=== PATIENT | female | born 1995 | race Hispanic/Latino ===

== ENCOUNTER 2019-03-20 10:27 | Emergency (ER) | payer OTHER ==
--- OUTSIDE RECORDS SUMMARY | 2019-03-20 10:30 | XMS REPORT ---
:1995 [facility] Address [address] [place] [address] Dr. Macdonald [address] [place] [id number] Care Team Providers Name Role Phone Unavailable Unavailable Unavailable Problems This patient has no known problems. Allergies, Adverse Reactions, Alerts This patient has no known allergies or adverse reactions. Medications This patient has no known medications.
[2019-03-20 11:26] LABS: Urine Bacteria 20-50 /HPF (<20); Urine Culture Reflex Order REFLEXED
[2019-03-20 11:32] LABS: Absolute Lymphocytes (CBC) 2.1 K/uL (0.7-4.9); Absolute Monocytes 0.3 K/uL (0.1-1.3); Absolute Neutrophil 5.5 K/uL (1.8-8.0); Basophils % 0.7 % (0-1.3); Eosinophils % 0.9 % (0-4.4); Hematocrit 38.1 % (36.0-45.0); Lymphocytes % 26.3 % (15.3-44.8); RBC Red Blood Cell Count 4.57 M/uL (3.86-4.86)
--- NOTE | 2019-03-20 11:49 | ER ---
Nurse's Notes [facility] Name: Stephane Gonzalez Age: 23 yrs Sex: Female : 1995 Arrival Date: 03/20/2019 Time: 10:30 Bed 16 Private MD: None, None Diagnosis: Threatened Presentation: 03/20 10:37 Presenting complaint: Patient states: LMP- 03/11/19; i have been bleeding for a week hj now, denies N/V; denies fever and chills; reports back pain; "i use like 2 pads a day and yesterday i noticed blood clots too". Transition of care: patient was not received from another setting of care. Onset of symptoms was March 20, 2019. Risk Assessment: Do you want to hurt yourself or someone else? Patient reports no desire to harm self or others. Initial Sepsis Screen: Does the patient meet any 2 criteria? No. Patient's initial sepsis screen is negative. Does the patient have a suspected source of infection? No. Patient's initial sepsis screen is negative. Care prior to arrival: None. 10:37 Method Of Arrival: Ambulatory 10:37 Acuity: ELI 3 Triage Assessment: 10:39 General: Appears in no apparent distress. uncomfortable, Behavior is calm, cooperative, hj appropriate for age. Pain: Complains of pain in back. : Reports vaginal bleeding that is with clots, heavy flow. 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 - Social history:: Smoking status: Patient/guardian denies using tobacco, Patient/guardian denies using alcohol. - Ebola Screening: : Patient negative for fever greater than or equal to 101.5 degrees Fahrenheit, and additional compatible Ebola Virus Disease symptoms Patient denies exposure to infectious person Patient denies travel to an Ebola-affected area in the 21 days before illness onset. Screenin:39 Abuse screen: Denies threats or abuse. Denies injuries from another. Nutritional hj screening: No deficits noted. Tuberculosis screening: No symptoms or risk factors identified. Fall Risk None identified. Assessment: 10:35 General: Appears in no apparent distress. uncomfortable, Behavior is calm, cooperative, hj appropriate for age. Pain: Complains of pain in back. Neuro: Level of Consciousness is awake, alert, obeys commands, Oriented to person, place, time, situation, Appropriate for age. Cardiovascular: Capillary refill < 3 seconds Patient's skin is warm and dry. Respiratory: Airway is patent Respiratory effort is even, unlabored, Respiratory pattern is regular, symmetrical. GI: No signs and/or symptoms were reported involving the gastrointestinal system. : No signs and/or symptoms were reported regarding the genitourinary system. : Reports vaginal bleeding that is bright red, with clots, heavy flow. EENT: No signs and/or symptoms were reported regarding the EENT system. Derm: No signs and/or symptoms reported regarding the dermatologic system. Musculoskeletal: No signs and/or symptoms reported regarding the musculoskeletal system. 11:05 Reassessment: Patient and/or family updated on plan of care and expected duration. Pain ae4 level reassessed. Pain: Complains of pain in lumbar area, left low back and right low back. 11:05 Obstetrical Assessment: General assessment: awake and alert, skin warm and dry, ae4 respirations even and unlabored, Patient reports back pain. 12:33 Reassessment: Patient updated on plan of care and has been made aware she will be ae4 returning to ultrasound. Patient verbalized understanding. Vital Signs: 10:38 BP 106 / 66; Pulse 72; Resp 18; Temp 98.4(O); Pulse Ox 99% on R/A; Weight 102.97 kg; hj Height 5 ft. 4 in. (162.56 cm); Pain 3/10; 11:45 BP 107 / 73; Pulse 73; Resp 16; Pulse Ox 100% on R/A; ae4 10:38 Body Mass Index 38.96 (102.97 kg, 162.56 cm) Vitals: 12:35 Heart Tones Please see ultrasound report.. ae4 ED Course: 10:30 Patient arrived in ED. mr 10:30 None, None is Private Physician. mr 10:32 Chel Waldron FNP-C is PHCP. snw 10:32 James Arias MD is Attending Physician. snw 10:36 Kevan Barrow, JUAN is Primary Nurse. hj 10:38 Triage completed. hj 10:40 Arm band placed on right wrist. hj 10:41 Patient has correct armband on for positive identification. Placed in gown. Bed in low hj position. Call light in reach. Side rails up X 1. Adult w/ patient. 10:53 Urine collected: clean catch specimen, cloudy, jill colored. jb1 11:07 Kevan Barrow, RN is Primary Nurse. hj 11:10 Inserted saline lock: in right antecubital area, using aseptic technique. Blood ae4 collected. 11:15 Patient taken to ultrasound. via wheelchair. ae4 11:30 Primary Nurse role handed off by Kevan Barrow, JUAN ae4 11:30 Vaughn Odom, RN is Primary Nurse. ae4 11:44 Patient moved back from ultrasound. ae4 13:02 Patient moved back from ultrasound. from 2nd ultrasound. ae4 14:23 No provider procedures requiring assistance completed. IV discontinued, intact, ae4 bleeding controlled, No redness/swelling at site. Pressure dressing applied. Administered Medications: No medications were administered Point of Care Testing: Urine : 14:24 hCG Reading: Positive; ae4 Outcome: 11:48 Discharge ordered by . snw 14:23 Discharged to home ambulatory, with family. ae4 14:23 Condition: stable 14:23 Discharge instructions given to patient, Instructed on discharge instructions, follow up and referral plans. medication usage, Demonstrated understanding of instructions, Prescriptions given X 1. 14:24 Patient left the ED. ae4 Signatures: Kayden Botello jb1 Chel Waldron FNP-C DADO OPERATOR-Csnw Ibis Contreras mr Kevan Barrow RN RN Vaughn Odom, JUAN RN ae4
--- NOTE | 2019-03-20 11:49 | EDPHYS ---
Physician Documentation [facility] Name: Stephane Gonzalez Age: 23 yrs Sex: Female : 1995 Arrival Date: 03/20/2019 Time: 10:30 Bed 16 Private MD: None, None ED Physician James Arias HPI: 03/20 11:07 This 23 yrs old Female presents to ER via Ambulatory with complaints of snw Vaginal Bleeding, + Preg <12wks. 11:07 The patient presents with vaginal bleeding that is moderate. Onset: The snw symptoms/episode began/occurred suddenly, 1 week(s) ago, and became persistent. Associated signs and symptoms: Pertinent positives: cramping, vaginal bleeding. Severity of symptoms: At their worst the symptoms were moderate. The patient is sexually active. The patient has been recently seen by a physician:. 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 - Social history:: Smoking status: Patient/guardian denies using tobacco, Patient/guardian denies using alcohol. - Ebola Screening: : Patient negative for fever greater than or equal to 101.5 degrees Fahrenheit, and additional compatible Ebola Virus Disease symptoms Patient denies exposure to infectious person Patient denies travel to an Ebola-affected area in the 21 days before illness onset. ROS: 11:04 Constitutional: Negative for fever, chills, and weight loss, Eyes: Negative for injury, snw pain, redness, and discharge, ENT: Negative for injury, pain, and discharge, Neck: Negative for injury, pain, and swelling, Cardiovascular: Negative for chest pain, palpitations, and edema, Respiratory: Negative for shortness of breath, cough, wheezing, and pleuritic chest pain, Abdomen/GI: Negative for abdominal pain, nausea, vomiting, diarrhea, and constipation, Back: Negative for injury and pain, MS/Extremity: Negative for injury and deformity, Skin: Negative for injury, rash, and discoloration, Neuro: Negative for headache, weakness, numbness, tingling, and seizure. 11:04 : Positive for vaginal bleeding, pt states her lmp was 3/25, found that she was 03/06, has been bleeding x one week, was light pink and has become darker with cramping and with clots over the past 2 days. Seen at [facility], sent to [place]. US showed 6 week IUP. F/u appt scheduled for next Wednesday. Exam: 11:04 Constitutional: This is a well developed, well nourished patient who is awake, alert, snw and in no acute distress. Head/Face: Normocephalic, atraumatic. Eyes: Pupils equal round and reactive to light, extra-ocular motions intact. Lids and lashes normal. Conjunctiva and sclera are non-icteric and not injected. Cornea within normal limits. Periorbital areas with no swelling, redness, or edema. ENT: Nares patent. No nasal discharge, no septal abnormalities noted. Tympanic membranes are normal and external auditory canals are clear. Oropharynx with no redness, swelling, or masses, exudates, or evidence of obstruction, uvula midline. Mucous membranes moist. Neck: Trachea midline, no thyromegaly or masses palpated, and no cervical lymphadenopathy. Supple, full range of motion without nuchal rigidity, or vertebral point tenderness. No Meningismus. Chest/axilla: Normal chest wall appearance and motion. Nontender with no deformity. No lesions are appreciated. Cardiovascular: Regular rate and rhythm with a normal S1 and S2. No gallops, murmurs, or rubs. Normal PMI, no JVD. No pulse deficits. Respiratory: Lungs have equal breath sounds bilaterally, clear to auscultation and percussion. No rales, rhonchi or wheezes noted. No increased work of breathing, no retractions or nasal flaring. Abdomen/GI: Soft, non-tender, with normal bowel sounds. No distension or tympany. No guarding or rebound. No evidence of tenderness throughout. Back: No spinal tenderness. No costovertebral tenderness. Full range of motion. Female : Normal external genitalia. Skin: Warm, dry with normal turgor. Normal color with no rashes, no lesions, and no evidence of cellulitis. MS/ Extremity: Pulses equal, no cyanosis. Neurovascular intact. Full, normal range of motion. Neuro: Awake and alert, GCS 15, oriented to person, place, time, and situation. Cranial nerves II-XII grossly intact. Motor strength 5/5 in all extremities. Sensory grossly intact. Cerebellar exam normal. Normal gait. Psych: Awake, alert, with orientation to person, place and time. Behavior, mood, and affect are within normal limits. Vital Signs: 10:38 BP 106 / 66; Pulse 72; Resp 18; Temp 98.4(O); Pulse Ox 99% on R/A; Weight 102.97 kg; hj Height 5 ft. 4 in. (162.56 cm); Pain 3/10; 11:45 BP 107 / 73; Pulse 73; Resp 16; Pulse Ox 100% on R/A; ae4 10:38 Body Mass Index 38.96 (102.97 kg, 162.56 cm) hj MDM: 10:33 Patient medically screened. [facility] 11:49 Data reviewed: vital signs, nurses notes. Data interpreted: Pulse oximetry: on room air snw is 100 %. Interpretation: normal. Counseling: I had a detailed discussion with the patient and/or guardian regarding: the historical points, exam findings, and any diagnostic results supporting the discharge/admit diagnosis, lab results, radiology results, the need for outpatient follow up, to return to the emergency department if symptoms worsen or persist or if there are any questions or concerns that arise at home. Special discussion: Based on the history and exam findings, there is no indication for further emergent testing or inpatient evaluation. I discussed with the patient/guardian the need to see the OB Gyne specialist for further evaluation of the symptoms. 03/20 10:33 Order name: Urine Microscopic Only; Complete Time: 11:29 snw 03/20 11:04 Order name: Quantitative Hcg; Complete Time: 12:13 snw 03/20 11:04 Order name: Abo/rh Typing; Complete Time: 11:45 snw 03/20 11:04 Order name: Basic Metabolic Panel; Complete Time: 12:13 snw 03/20 11:04 Order name: CBC with Diff; Complete Time: 11:36 snw 03/20 11:35 Order name: Urine Dipstick--Ancillary (enter results) bd 03/20 10:33 Order name: Urine Test (obtain specimen); Complete Time: 10:54 snw 03/20 10:33 Order name: Urine Dipstick-Ancillary (obtain specimen); Complete Time: 10:54 snw 03/20 11:04 Order name: IV Saline Lock; Complete Time: 11:23 snw 03/20 11:04 Order name: Labs collected and sent; Complete Time: 11:23 snw 03/20 11:04 Order name: US Transvaginal Ob snw 03/20 11:35 Order name: Urine --Ancillary (enter results) bd 03/20 11:59 Order name: Urine --Ancillary; Complete Time: 11:59 EDMS 03/20 11:59 Order name: Urine Dipstick-Ancillary; Complete Time: 11:59 EDMD 03/20 11:04 Order name: NPO; Complete Time: 11:23 snw Administered Medications: No medications were administered Point of Care Testing: Urine : 14:24 hCG Reading: Positive; ae4 Disposition: 03/21 07:33 Co-signature as Attending Physician, James Arias MD I agree with the assessment and kenia plan of care. Disposition: 03/20/19 11:48 Discharged to Home. Impression: Threatened . - Condition is Stable. - Discharge Instructions: Threatened Miscarriage, Vaginal Bleeding During , First Trimester, Subchorionic Hematoma, First Trimester of , Pelvic Rest. - Prescriptions for Vitamin 27- 0.8 mg Oral Tablet - take 1 tablet by ORAL route once daily; 60 tablet. - Medication Reconciliation Form, Thank You Letter, Antibiotic Education, Prescription Opioid Use form. - Follow up: Private Physician; When: as scheduled; Reason: Recheck today's complaints, Continuance of care, Re-evaluation by your physician. Signatures: Dispatcher [employer] James Ascencio MD MD cha Therrien, Shelly, SIDER-C SIDER-Csnw Kevan Barrow, JUAN RN Vaughn Hogan RN RN ae4 Corrections: (The following items were deleted from the chart) 03/20 11:50 11:04 : Positive for vaginal bleeding, pt states her lmp was 4/25, found that she was snw 03/06, has been bleeding x one week, was light pink and has become darker with cramping and with clots over the past 2 days. Seen at [facility], sent to [place]. US showed 6 week IUP. F/u appt scheduled for next Wednesday, shaylee 14:24 11:48 03/20/2019 11:48 Discharged to Home. Impression: Threatened . Condition ae4 is Stable. Forms are Medication Reconciliation Form, Thank You Letter, Antibiotic Education, Prescription Opioid Use. Follow up: Private Physician; When: as scheduled; Reason: Recheck today's complaints, Continuance of care, Re-evaluation by your physician. snw
[2019-03-20 11:56] LABS: Urine Blood 3+ (NEG); Urine Glucose NEGATIVE (NEG); Urine Protein 1+ (NEG); Urine Specific Gravity >1.030 (1.005-1.030); Urine pH 5.5 (5.0-7.0)
[2019-03-20 12:12] LABS: BUN Blood Urea Nitrogen 14 mg/dL (7-18); Bicarbonate 25 mmol/L (21-32); Glucose Level 85 mg/dL (74-106); HCG, Quantitative 1997 mIU/mL (1-3); Sodium Level 138 mmol/L (136-145)
[2019-03-20 14:28] VITALS: TEMP 98.4
[2019-03-20 14:30] VITALS: BP 107/73; O2SAT 100
--- NOTE | 2019-03-20 15:06 | RAD REPORT ---
EXAM DESCRIPTION: US - Transvaginal OB - 03/20/2019 11:36 am CLINICAL HISTORY: with abdominal pain and vaginal bleeding COMPARISON: None. FINDINGS: The uterus 9 x 5 x 6 centimeters. A gestational sac is present within the endometrium. Wi thin this is a yolk sac and pole with a crown-rump length 5.6 millimeters. Cardiac activity not visualized. An additional 2 millimeter echogenic structure present within the gestational sac of unc ertain etiology. Right ovary is normal in size and echotexture. Left ovary was not seen. An adnexal mass is not noted. No significant free fluid is seen. IMPRESSION: Intrauterine with an estimated gestational age 6 weeks 2 days SUMAN 11/11/2019. This may represent a nonviable . Another consideration is that the cardiac activity was not detected due to a combination of the early gestational age and technical factors. It is recommended t hat the patient have a followup endovaginal sonogram in 1 week for re-evaluation Exam discussed with Ameena in the Emergency Room
== END 2019-03-20 14:24 | disposition home or self-care (01) ==
LOC: ER 10:27
DX: O20.0 Threatened abortion (principal); Z3A.01 Less than 8 weeks gestation of pregnancy
CPT/HCPCS: 36415; 76817; 80048; 81003; 81015; 81025; 84702; 85025; 86900; 86901; 87086; 87088; 99284

== ENCOUNTER 2019-03-21 07:43 | Emergency (ER) | payer OTHER ==
--- OUTSIDE RECORDS SUMMARY | 2019-03-21 07:45 | XMS REPORT ---
:1995 [facility] Address [address] [place] [address] Dr. Macdonald [address] [place] [id number] Care Team Providers Name Role Phone Unavailable Unavailable Unavailable Problems This patient has no known problems. Allergies, Adverse Reactions, Alerts This patient has no known allergies or adverse reactions. Medications This patient has no known medications.
[2019-03-21] MEDS ORDERED: NA CHLORIDE 0.9% 1,000 ML ONE (08:16)
--- NOTE | 2019-03-21 09:00 | RAD REPORT ---
EXAM DESCRIPTION: US - Transvaginal OB - 03/21/2019 8:30 am CLINICAL HISTORY: with abdominal pain and vaginal bleeding COMPARISON: March 20, 2019 FINDINGS: The uterus 9 x 4 x 4 centimeters. The endometrial stripe is heterogeneous containing cyst ic and solid elements. Increased vascularity is present. A normal appearing a gestational sac is not noted. A normal appearing pole is not seen. Ovaries are normal in size and echotexture.. An adnexal mass is not noted. Small amount of fluid IMPRESSION: Incomplete
[2019-03-21 09:01] LABS: Absolute Lymphocytes (CBC) 2.1 K/uL (0.7-4.9); Absolute Monocytes 0.5 K/uL (0.1-1.3); Absolute Neutrophil 6.9 K/uL (1.8-8.0); Basophils % 0.6 % (0-1.3); Hematocrit 37.4 % (36.0-45.0); Lymphocytes % 21.6 % (15.3-44.8); MPV 7.9 fL (7.6-11.3); Monocytes % 5.1 % (3.3-12.3); RBC Red Blood Cell Count 4.47 M/uL (3.86-4.86)
[2019-03-21 09:32] LABS: BUN Blood Urea Nitrogen 14 mg/dL (7-18); Bicarbonate 23 mmol/L (21-32); Glucose Level 93 mg/dL (74-106); HCG, Quantitative 1308 mIU/mL (1-3); Potassium 3.9 mmol/L (3.5-5.1); Sodium Level 140 mmol/L (136-145)
--- NOTE | 2019-03-21 09:41 | EDPHYS ---
Physician Documentation [facility] Name: Stephane Gonzalez Age: 23 yrs Sex: Female : 1995 Arrival Date: 03/21/2019 Time: 07:45 Bed 13 Private MD: None, None ED Physician James Arias HPI: 03/21 08:27 This 23 yrs old Female presents to ER via Wheelchair with complaints of kenia Vaginal Bleeding, . 08:27 The patient presents with vaginal bleeding that is light. Onset: The symptoms/episode kenia began/occurred 1 week(s) ago. Modifying factors: The symptoms are alleviated by nothing, the symptoms are aggravated by nothing. Associated signs and symptoms: The patient has no apparent associated signs or symptoms. The patient is sexually active. The patient has not experienced similar symptoms in the past. 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 - Social history:: Smoking status: . - Ebola Screening: : Patient denies travel to an Ebola-affected area in the 21 days before illness onset. - Family history:: not pertinent. ROS: 08:27 Constitutional: Negative for fever, chills, and weight loss, Eyes: Negative for injury, kenia pain, redness, and discharge, ENT: Negative for injury, pain, and discharge, Neck: Negative for injury, pain, and swelling, Cardiovascular: Negative for chest pain, palpitations, and edema, Respiratory: Negative for shortness of breath, cough, wheezing, and pleuritic chest pain, Abdomen/GI: Negative for abdominal pain, nausea, vomiting, diarrhea, and constipation, Back: Negative for injury and pain, MS/Extremity: Negative for injury and deformity, Skin: Negative for injury, rash, and discoloration, Neuro: Negative for headache, weakness, numbness, tingling, and seizure, Psych: Negative for depression, anxiety, suicide ideation, homicidal ideation, and hallucinations, Allergy/Immunology: Negative for hives, rash, and allergies, Endocrine: Negative for neck swelling, polydipsia, polyuria, polyphagia, and marked weight changes, Hematologic/Lymphatic: Negative for swollen nodes, abnormal bleeding, and unusual bruising. 08:27 : Positive for pelvic pain, vaginal bleeding. Exam: 08:27 Constitutional: This is a well developed, well nourished patient who is awake, alert, kenia and in no acute distress. Head/Face: Normocephalic, atraumatic. Eyes: Pupils equal round and reactive to light, extra-ocular motions intact. Lids and lashes normal. Conjunctiva and sclera are non-icteric and not injected. Cornea within normal limits. Periorbital areas with no swelling, redness, or edema. ENT: Nares patent. No nasal discharge, no septal abnormalities noted. Tympanic membranes are normal and external auditory canals are clear. Oropharynx with no redness, swelling, or masses, exudates, or evidence of obstruction, uvula midline. Mucous membranes moist. Neck: Trachea midline, no thyromegaly or masses palpated, and no cervical lymphadenopathy. Supple, full range of motion without nuchal rigidity, or vertebral point tenderness. No Meningismus. Chest/axilla: Normal chest wall appearance and motion. Nontender with no deformity. No lesions are appreciated. Cardiovascular: Regular rate and rhythm with a normal S1 and S2. No gallops, murmurs, or rubs. Normal PMI, no JVD. No pulse deficits. Respiratory: Lungs have equal breath sounds bilaterally, clear to auscultation and percussion. No rales, rhonchi or wheezes noted. No increased work of breathing, no retractions or nasal flaring. Abdomen/GI: Soft, non-tender, with normal bowel sounds. No distension or tympany. No guarding or rebound. No evidence of tenderness throughout. Back: No spinal tenderness. No costovertebral tenderness. Full range of motion. Skin: Warm, dry with normal turgor. Normal color with no rashes, no lesions, and no evidence of cellulitis. MS/ Extremity: Pulses equal, no cyanosis. Neurovascular intact. Full, normal range of motion. Neuro: Awake and alert, GCS 15, oriented to person, place, time, and situation. Cranial nerves II-XII grossly intact. Motor strength 5/5 in all extremities. Sensory grossly intact. Cerebellar exam normal. Normal gait. Psych: Awake, alert, with orientation to person, place and time. Behavior, mood, and affect are within normal limits. Vital Signs: 07:51 BP 117 / 91; Pulse 82; Resp 18; Temp 97.9(O); Pulse Ox 100% on R/A; Pain 8/10; tw2 08:54 BP 101 / 67; Pulse 78; Resp 18; Pulse Ox 98% on R/A; tw2 MDM: 07:54 Patient medically screened. [facility] 03/21 07:56 Order name: Quantitative Hcg; Complete Time: 09:40 [facility] 03/21 07:56 Order name: Abo/rh Typing [facility] 03/21 07:56 Order name: Basic Metabolic Panel; Complete Time: 09:40 [facility] 03/21 07:56 Order name: CBC with Diff; Complete Time: 09:03 [facility] 03/21 07:56 Order name: US Transvaginal Ob; Complete Time: 09:03 [facility] 03/21 07:56 Order name: Urine Culture [facility] 03/21 07:56 Order name: IV Saline Lock; Complete Time: 08:04 [facility] 03/21 07:56 Order name: Labs collected and sent; Complete Time: 08:04 [facility] 03/21 07:56 Order name: NPO; Complete Time: 07:58 [facility] 03/21 08:23 Order name: Labs - recollect needed; Complete Time: 08:44 iw Administered Medications: 08:04 Drug: NS 0.9% 1000 ml Route: IV; Rate: 1 bolus; Site: right antecubital; tw2 10:16 Follow up: Response: No adverse reaction; IV Status: Order to discontinue infusion; IV tw2 Intake: 700ml Disposition: 03/21/19 09:41 Discharged to Home. Impression: Threatened , Missed . - Condition is Stable. - Discharge Instructions: Miscarriage, Threatened Miscarriage, Vaginal Bleeding During , First Trimester, Threatened Miscarriage, [id number], Pelvic Rest. - Prescriptions for Vitamin 27- 0.8 mg Oral Tablet - take 1 tablet by ORAL route once daily; 30 tablet. - Medication Reconciliation Form, Thank You Letter, Antibiotic Education, Prescription Opioid Use form. - Follow up: Private Physician; When: 2 - 3 days; Reason: Recheck today's complaints, Continuance of care, Re-evaluation by your physician. Follow up: Mini Rekhi; When: 2 - 3 days; Reason: Recheck today's complaints, Re-evaluation by your physician. - Problem is new. - Symptoms have improved. Signatures: Dispatcher [employer] James Ascencio MD MD cha Williams, Irene, RN RN iw Lisa Rick RN RN tw2 Corrections: (The following items were deleted from the chart) 10:16 09:41 03/21/2019 09:41 Discharged to Home. Impression: Threatened ; Missed tw2 . Condition is Stable. Discharge Instructions: Threatened Miscarriage, Vaginal Bleeding During , First Trimester, Threatened Miscarriage, [id number], Pelvic Rest, Miscarriage. Prescriptions for Vitamin 27-0.8 mg Oral Tablet - take 1 tablet by ORAL route once daily; 30 tablet. and Forms are Medication Reconciliation Form, Thank You Letter, Antibiotic Education, Prescription Opioid Use. Follow up: Private Physician; When: 2 - 3 days; Reason: Recheck today's complaints, Continuance of care, Re-evaluation by your physician. Follow up: Mini Rekhi; When: 2 - 3 days; Reason: Recheck today's complaints, Re-evaluation by your physician. Problem is new. Symptoms have improved. kenia
--- NOTE | 2019-03-21 09:41 | ER ---
Nurse's Notes [facility] Name: Stephane Gonzalez Age: 23 yrs Sex: Female : 1995 Arrival Date: 03/21/2019 Time: 07:45 Bed 13 Private MD: None, None Diagnosis: Threatened ;Missed Presentation: 03/21 07:49 Presenting complaint: Patient states: i passed the sac this morning and i am bleeding, tw2 i have a picture of it. Transition of care: patient was not received from another setting of care. Onset of symptoms was March 21, 2019. Risk Assessment: Do you want to hurt yourself or someone else? Patient reports no desire to harm self or others. Initial Sepsis Screen: Does the patient meet any 2 criteria? No. Patient's initial sepsis screen is negative. Does the patient have a suspected source of infection? No. Patient's initial sepsis screen is negative. Care prior to arrival: None. 07:49 Method Of Arrival: Wheelchair tw2 07:49 Acuity: ELI 3 tw2 Triage Assessment: 07:50 General: Appears in no apparent distress. obese, Behavior is cooperative, appropriate tw2 for age, crying. Pain: Complains of pain in back. : Reports vaginal bleeding that is bright red, moderate flow. 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 - Social history:: Smoking status: . - Ebola Screening: : Patient denies travel to an Ebola-affected area in the 21 days before illness onset. - Family history:: not pertinent. Screenin:54 Abuse screen: Denies threats or abuse. Nutritional screening: No deficits noted. tw2 Tuberculosis screening: No symptoms or risk factors identified. Fall Risk None identified. Assessment: 07:54 General: Appears in no apparent distress. obese, Behavior is cooperative, appropriate tw2 for age, crying. Pain: Complains of pain in back. Neuro: Level of Consciousness is awake, alert, obeys commands, Oriented to person, place, time, situation. Cardiovascular: Heart tones S1 S2 Patient's skin is warm and dry. Respiratory: Airway is patent Respiratory effort is even, unlabored, Respiratory pattern is regular, symmetrical, Breath sounds are clear bilaterally. GI: No signs and/or symptoms were reported involving the gastrointestinal system. Abdomen is round non-distended, obese, Bowel sounds present X 4 quads. : Reports vaginal bleeding that is bright red, moderate flow. EENT: No signs and/or symptoms were reported regarding the EENT system. Derm: No signs and/or symptoms reported regarding the dermatologic system. Musculoskeletal: Reports pain in back. 08:25 Reassessment: levi bloody urine sent to lab for dipstick and urine culture. tw2 08:54 Reassessment: Patient appears in no apparent distress at this time. No changes from tw2 previously documented assessment. Patient and/or family updated on plan of care and expected duration. Pain level reassessed. Patient is alert, oriented x 3, equal unlabored respirations, skin warm/dry/pink. 09:23 Reassessment: provider at bedside at this time. tw2 10:15 Reassessment: Patient appears in no apparent distress at this time. No changes from tw2 previously documented assessment. Patient and/or family updated on plan of care and expected duration. Pain level reassessed. Patient is alert, oriented x 3, equal unlabored respirations, skin warm/dry/pink. Vital Signs: 07:51 BP 117 / 91; Pulse 82; Resp 18; Temp 97.9(O); Pulse Ox 100% on R/A; Pain 8/10; tw2 08:54 BP 101 / 67; Pulse 78; Resp 18; Pulse Ox 98% on R/A; tw2 ED Course: 07:45 Patient arrived in ED. mr 07:45 None, None is Private Physician. mr 07:49 Lisa Rick RN is Primary Nurse. tw2 07:50 Triage completed. tw2 07:51 Arm band placed on. tw2 07:54 James Arias MD is Attending Physician. kenia 07:54 Bed in low position. Call light in reach. Adult w/ patient. Pulse ox on. NIBP on. tw2 08:14 Initial lab(s) drawn, by me, sent to lab. Inserted saline lock: 22 gauge in right kj1 antecubital area, using aseptic technique. 08:30 US Transvaginal Ob In Process Unspecified. EDMS 09:40 Ivette You MD is Referral Physician. [facility] 10:16 No provider procedures requiring assistance completed. IV discontinued, intact, tw2 bleeding controlled, No redness/swelling at site. Pressure dressing applied. Administered Medications: 08:04 Drug: NS 0.9% 1000 ml Route: IV; Rate: 1 bolus; Site: right antecubital; tw2 10:16 Follow up: Response: No adverse reaction; IV Status: Order to discontinue infusion; IV tw2 Intake: 700ml Intake: 10:16 IV: 700ml; Total: 700ml. tw2 Outcome: 09:41 Discharge ordered by . [facility] 10:16 Discharged to home ambulatory, with family. tw2 10:16 Condition: stable 10:16 Discharge instructions given to patient, family, Instructed on discharge instructions, follow up and referral plans. medication usage, Demonstrated understanding of instructions, follow-up care, medications, Prescriptions given X 1. 10:16 Patient left the ED. tw2 Signatures: Dispatcher [employer] EDSC James Arias MD MD cha Rivera, Lisa Leung RN RN tw2 Anai Aldana kj1 Corrections: (The following items were deleted from the chart) 07:53 07:52 LMP 01/09/2019 tw2 tw2
[2019-03-21 10:22] VITALS: TEMP 97.9
[2019-03-21 10:24] VITALS: BP 101/67; O2SAT 98
== END 2019-03-21 10:16 | disposition home or self-care (01) ==
LOC: ER 07:43
DX: O02.1 Missed abortion (principal)
CPT/HCPCS: 36415; 76817; 80048; 84702; 85025; 86900; 86901; 87086; 87088; 96360; 96361; 99284; J7030

== ENCOUNTER 2019-12-25 10:42 | Emergency (ER) | payer OTHER ==
--- OUTSIDE RECORDS SUMMARY | 2019-12-25 10:47 | XMS REPORT ---
:1995 [facility] Address [address] [place] [address] Dr. Macdonald [address] [place] [id number] Care Team Providers Name Role Phone Unavailable Unavailable Unavailable Problems This patient has no known problems. Allergies, Adverse Reactions, Alerts This patient has no known allergies or adverse reactions. Medications This patient has no known medications.
[2019-12-25] MEDS ORDERED: NA CHLORIDE 0.9% 1,000 ML ONE (11:12)
[2019-12-25 11:34] LABS: Absolute Lymphocytes (CBC) 1.6 K/uL (0.7-4.9); Basophils % 0.2 % (0-1.3); Hematocrit 35.3 % (36.0-45.0); Lymphocytes % 13.4 % (15.3-44.8); RBC Red Blood Cell Count 4.14 M/uL (3.86-4.86)
[2019-12-25 11:36] LABS: Urine Blood NEGATIVE (NEG); Urine Glucose NEGATIVE (NEG); Urine Protein 1+ (NEG); Urine pH 5.5 (5.0-7.0)
--- NOTE | 2019-12-25 11:37 | RAD REPORT ---
EXAM DESCRIPTION: US - Abdomen Exam Limited - 12/25/2019 11:19 am CLINICAL HISTORY: Abdominal pain. COMPARISON: None. FINDINGS: Borderline gallbladder distention The gallbladder wall is not thickened. A gallstone is not seen. The biliary tree is normal caliber. IMPRESSION: Borderline gallbladder distention. A gallstone is not seen
[2019-12-25 11:47] LABS: ALT/SGPT 22 U/L (12-78); AST/SGOT 20 U/L (15-37); Albumin 2.8 g/dL (3.4-5.0); Alkaline Phosphatase 123 U/L (45-117); BUN Blood Urea Nitrogen 5 mg/dL (7-18); Bicarbonate 22 mmol/L (21-32); Bilirubin Direct < 0.1 mg/dL (0-0.2); Bilirubin Total 0.3 mg/dL (0.2-1.0); Glucose Level 79 mg/dL (74-106); Lipase 107 U/L (73-393); Potassium 3.7 mmol/L (3.5-5.1); Protein, Total 7.2 g/dL (6.4-8.2); Sodium Level 139 mmol/L (136-145)
--- NOTE | 2019-12-25 12:25 | ER ---
Nurse's Notes [facility] Name: Stephane Gonzalez Age: 24 yrs Sex: Female : 1995 Arrival Date: 12/25/2019 Time: 10:53 Bed 6 Private MD: Diagnosis: Functional dyspepsia; related conditions, unspecified, third trimester;Urinary tract infection, site not specified Presentation: 12/24 10:54 Chief complaint: EMS states: epigastric pain that started today, reports N/V/D, denies em fever, also reports being 30 weeks , denies vaginal bleeding or cramping. Coronavirus screen: The patient has NOT traveled to a country currently being monitored by the [facility] within the last 14 days. The patient has NOT had contact with any known and/or suspected case of coronavirus. Ebola Screen: Patient negative for fever greater than or equal to 101.5 degrees Fahrenheit, and additional compatible Ebola Virus Disease symptoms Patient denies exposure to infectious person. Patient denies travel to an Ebola-affected area in the 21 days before illness onset. No symptoms or risks identified at this time. Initial Sepsis Screen: Does the patient meet any 2 criteria? No. Patient's initial sepsis screen is negative. Does the patient have a suspected source of infection? No. Patient's initial sepsis screen is negative. Risk Assessment: Do you want to hurt yourself or someone else? Patient reports no desire to harm self or others. 10:54 Method Of Arrival: EMS: [facility] em 10:54 Acuity: ELI 3 em 11:14 Onset of symptoms was December 25, 2019. 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 - Social history:: Smoking status: Patient denies any tobacco usage or history of. Screenin:59 Abuse screen: Denies threats or abuse. Nutritional screening: No deficits noted. em Tuberculosis screening: No symptoms or risk factors identified. Fall Risk None identified. Assessment: 10:58 General: Appears in no apparent distress. comfortable, Behavior is calm, cooperative, em Denies fever. Pain: Complains of pain in epigastric area Pain radiates to back Pain currently is 7 out of 10 on a pain scale. Quality of pain is described as shooting, Pain began 3 hours ago. Neuro: Level of Consciousness is awake, alert, obeys commands, Oriented to person, place, time, situation, Appropriate for age. Cardiovascular: Capillary refill < 3 seconds Patient's skin is warm and dry. Respiratory: Airway is patent Respiratory effort is even, unlabored, Respiratory pattern is regular, symmetrical. GI: Abdomen is round non-distended, Bowel sounds present X 4 quads. Abd is soft and non tender X 4 quads. Reports diarrhea, nausea, vomiting. : Denies burning with urination, cramping discharge, vaginal bleeding. Derm: Skin is intact, is healthy with good turgor, Skin is pink, warm \T\ dry. Musculoskeletal: Capillary refill < 3 seconds, Range of motion: intact in all extremities. 11:14 Reassessment: Ultrasound at the bedside. sv 12:15 Reassessment: Patient appears in no apparent distress at this time. Patient and/or em family updated on plan of care and expected duration. Pain level reassessed. Patient is alert, oriented x 3, equal unlabored respirations, skin warm/dry/pink. Vital Signs: 10:54 BP 107 / 69; Pulse 80; Resp 18; Temp 97.4; Pulse Ox 100% on R/A; Weight 99.79 kg; em Height 5 ft. 4 in. (162.56 cm); Pain 7/10; 12:15 BP 106 / 72; Pulse 72; Resp 18; Pulse Ox 99% on R/A; Pain 7/10; em 10:54 Body Mass Index 37.76 (99.79 kg, 162.56 cm) em Vitals: 11:24 Heart Tones 140. sv ED Course: 10:53 Patient arrived in ED. em 10:54 James Arias MD is Attending Physician. [facility] 10:56 Triage completed. em 10:56 Arm band placed on. em 10:59 Patient has correct armband on for positive identification. Placed in gown. Bed in low em position. Call light in reach. Side rails up X2. Adult w/ patient. Pulse ox on. NIBP on. 11:05 Sohan Rooney, RN is Primary Nurse. em 11:05 Inserted saline lock: 20 gauge in right antecubital area, using aseptic technique. sv Blood collected. Flushed right antecubital with 5 ml normal saline. 11:16 Awaiting lab results. sv 11:21 US Abdomen Limited In Process Unspecified. EDMS 13:07 No provider procedures requiring assistance completed. IV discontinued, intact, em bleeding controlled, No redness/swelling at site. Pressure dressing applied. Administered Medications: 11:25 Drug: NS 0.9% 1000 ml Route: IV; Rate: 1 bolus; Site: right antecubital; sv 13:06 Follow up: IV Status: Order to discontinue infusion; IV Intake: 200ml em 13:05 Not Given (Physician Discretion): Rocephin 1 grams IV at per protocol once; Given slow em IV push per pharmacy instructions 13:06 Drug: Rocephin (cefTRIAXone) 1 grams Route: IM; Site: right gluteus; em 13:16 Follow up: Response: No adverse reaction em Intake: 13:06 IV: 200ml; Total: 200ml. em Outcome: 12:23 Discharge ordered by . kenia 13:12 Discharged to home ambulatory. em 13:12 Condition: good 13:12 Discharge instructions given to patient, Instructed on discharge instructions, follow up and referral plans. medication usage, Demonstrated understanding of instructions, follow-up care, medications, Prescriptions given X 2. 13:17 Patient left the ED. em Signatures: Dispatcher [employer] Basia Johnston RN RN sv Anderson, Corey, MD MD cha Munoz, Edgar, RN RN em
--- NOTE | 2019-12-25 12:25 | EDPHYS ---
Physician Documentation [facility] Name: Stephane Gonzalez Age: 24 yrs Sex: Female : 1995 Arrival Date: 12/25/2019 Time: 10:53 Bed 6 Private MD: ED Physician James Arias HPI: 12/24 11:01 This 24 yrs old Female presents to ER via EMS with complaints of Abdominal kenia Pain. 11:01 The patient presents with abdominal pain in the epigastric area. Onset: The kenia symptoms/episode began/occurred this morning. The symptoms do not radiate. Associated signs and symptoms: none. The symptoms are described as crampy. Modifying factors: The symptoms are alleviated by food. Severity of pain: At its worst the pain was mild in the emergency department the pain is unchanged. The patient has not experienced similar symptoms in the past. 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 - Social history:: Smoking status: Patient denies any tobacco usage or history of. ROS: 11:02 Constitutional: Negative for fever, chills, and weight loss, Eyes: Negative for injury, kenia pain, redness, and discharge, ENT: Negative for injury, pain, and discharge, Neck: Negative for injury, pain, and swelling, Cardiovascular: Negative for chest pain, palpitations, and edema, Respiratory: Negative for shortness of breath, cough, wheezing, and pleuritic chest pain, Back: Negative for injury and pain, : Negative for injury, bleeding, discharge, and swelling, MS/Extremity: Negative for injury and deformity, Skin: Negative for injury, rash, and discoloration, Neuro: Negative for headache, weakness, numbness, tingling, and seizure, Psych: Negative for depression, anxiety, suicide ideation, homicidal ideation, and hallucinations, Allergy/Immunology: Negative for hives, rash, and allergies, Endocrine: Negative for neck swelling, polydipsia, polyuria, polyphagia, and marked weight changes, Hematologic/Lymphatic: Negative for swollen nodes, abnormal bleeding, and unusual bruising. 11:02 Abdomen/GI: Positive for abdominal pain, of the epigastric area, right upper quadrant and left upper quadrant. Exam: 11:02 Constitutional: This is a well developed, well nourished patient who is awake, alert, kenia and in no acute distress. Head/Face: Normocephalic, atraumatic. Eyes: Pupils equal round and reactive to light, extra-ocular motions intact. Lids and lashes normal. Conjunctiva and sclera are non-icteric and not injected. Cornea within normal limits. Periorbital areas with no swelling, redness, or edema. ENT: Nares patent. No nasal discharge, no septal abnormalities noted. Tympanic membranes are normal and external auditory canals are clear. Oropharynx with no redness, swelling, or masses, exudates, or evidence of obstruction, uvula midline. Mucous membranes moist. Neck: Trachea midline, no thyromegaly or masses palpated, and no cervical lymphadenopathy. Supple, full range of motion without nuchal rigidity, or vertebral point tenderness. No Meningismus. Chest/axilla: Normal chest wall appearance and motion. Nontender with no deformity. No lesions are appreciated. Cardiovascular: Regular rate and rhythm with a normal S1 and S2. No gallops, murmurs, or rubs. Normal PMI, no JVD. No pulse deficits. Respiratory: Lungs have equal breath sounds bilaterally, clear to auscultation and percussion. No rales, rhonchi or wheezes noted. No increased work of breathing, no retractions or nasal flaring. Back: No spinal tenderness. No costovertebral tenderness. Full range of motion. Skin: Warm, dry with normal turgor. Normal color with no rashes, no lesions, and no evidence of cellulitis. MS/ Extremity: Pulses equal, no cyanosis. Neurovascular intact. Full, normal range of motion. Neuro: Awake and alert, GCS 15, oriented to person, place, time, and situation. Cranial nerves II-XII grossly intact. Motor strength 5/5 in all extremities. Sensory grossly intact. Cerebellar exam normal. Normal gait. Psych: Awake, alert, with orientation to person, place and time. Behavior, mood, and affect are within normal limits. 11:02 Abdomen/GI: Inspection: gravid appearance, Bowel sounds: normal, Palpation: mild abdominal tenderness, in the epigastric area and right upper quadrant, Liver: no appreciated palpable abnormalities, Hernia: not appreciated. Vital Signs: 10:54 BP 107 / 69; Pulse 80; Resp 18; Temp 97.4; Pulse Ox 100% on R/A; Weight 99.79 kg; em Height 5 ft. 4 in. (162.56 cm); Pain 7/10; 12:15 BP 106 / 72; Pulse 72; Resp 18; Pulse Ox 99% on R/A; Pain 7/10; em 10:54 Body Mass Index 37.76 (99.79 kg, 162.56 cm) em MDM: 11:03 Data reviewed: vital signs, nurses notes, lab test result(s), radiologic studies, [facility] ultrasound. 11:03 Patient medically screened. [facility] 12/24 11:00 Order name: Basic Metabolic Panel; Complete Time: 12:16 [facility] 12/24 11:00 Order name: CBC with Diff; Complete Time: 12:16 [facility] 12/24 11:00 Order name: Creatinine for Radiology; Complete Time: 12:16 [facility] 12/24 11:00 Order name: Hepatic Function; Complete Time: 12:16 [facility] 12/24 11:00 Order name: Lipase; Complete Time: 12:17 [facility] 12/24 11:00 Order name: Urine Culture [facility] 12/24 11:00 Order name: IV Saline Lock; Complete Time: 11:11 [facility] 12/24 11:00 Order name: Labs collected and sent; Complete Time: 11:11 [facility] 12/24 11:00 Order name: US Abdomen Limited; Complete Time: 12:17 [facility] 12/24 11:19 Order name: Urine Dipstick--Ancillary (enter results); Complete Time: 12:16 12/24 11:19 Order name: Urine --Ancillary (enter results); Complete Time: 12:16 12/24 11:00 Order name: Urine Dipstick-Ancillary (obtain specimen); Complete Time: 11:24 [facility] 12/24 11:00 Order name: Urine Test (obtain specimen); Complete Time: 11:24 [facility] 12/24 11:00 Order name: FHT's; Complete Time: 11:24 [facility] Administered Medications: 11:25 Drug: NS 0.9% 1000 ml Route: IV; Rate: 1 bolus; Site: right antecubital; sv 13:06 Follow up: IV Status: Order to discontinue infusion; IV Intake: 200ml em 13:05 Not Given (Physician Discretion): Rocephin 1 grams IV at per protocol once; Given slow em IV push per pharmacy instructions 13:06 Drug: Rocephin (cefTRIAXone) 1 grams Route: IM; Site: right gluteus; em 13:16 Follow up: Response: No adverse reaction em Disposition: 12/25/19 12:23 Discharged to Home. Impression: Functional dyspepsia, related conditions, unspecified, third trimester, Urinary tract infection, site not specified. - Condition is Stable. - Discharge Instructions: Abdominal Pain During , Urinary Tract Infection, Adult, Urinary Tract Infection, Adult, [id number], Abdominal Pain During , Qezo-hb-[id number], and Urinary Tract Infection, Pelvic Rest. - Prescriptions for Augmentin 875- 125 mg Oral Tablet - take 1 tablet by ORAL route every 12 hours for 7 days; 14 tablet. Vitamin 27- 0.8 mg Oral Tablet - take 1 tablet by ORAL route once daily; 30 tablet. - Medication Reconciliation Form, Thank You Letter, Antibiotic Education, Prescription Opioid Use form. - Follow up: Private Physician; When: 2 - 3 days; Reason: Recheck today's complaints, Continuance of care, Re-evaluation by your physician. - Problem is new. - Symptoms have improved. Signatures: Dispatcher [employer] Basia Johnston, RN James Hayes MD MD cha Munoz, Edgar, RN RN em Corrections: (The following items were deleted from the chart) 13:17 12:23 12/25/2019 12:23 Discharged to Home. Impression: Functional dyspepsia; em related conditions, unspecified, third trimester; Urinary tract infection, site not specified. Condition is Stable. Forms are Medication Reconciliation Form, Thank You Letter, Antibiotic Education, Prescription Opioid Use. Follow up: Private Physician; When: 2 - 3 days; Reason: Recheck today's complaints, Continuance of care, Re-evaluation by your physician. Problem is new. Symptoms have improved. kenia
[2019-12-25] MEDS ORDERED: CEFTRIAXONE/SWI 1gm 0 GM/0 ML SYR ONE (12:38)
[2019-12-25] MEDS ORDERED: LIDOCAINE 1% MPF 2 ML AMPULE ONE (13:04)
[2019-12-25] MEDS ORDERED: CEFTRIAXONE 1000 MG/VIAL ONE (13:04)
[2019-12-25 13:31] VITALS: TEMP 97.4
[2019-12-25 13:33] VITALS: BP 106/72; O2SAT 99
== END 2019-12-25 13:17 | disposition home or self-care (01) ==
LOC: ER 10:42
DX: O23.43 Unspecified infection of urinary tract in pregnancy, third trimester (principal); Z3A.30 30 weeks gestation of pregnancy; K30 Functional dyspepsia
CPT/HCPCS: 96361; 87088; 85025; 87086; 80048; 36415; 81025; 80076; 81003; 83690; 76705; 96360; 96372; 99284; J2001; J7030; J0696

== ENCOUNTER 2020-03-01 00:21 | Inpatient (IN) | payer OTHER ==
--- OUTSIDE RECORDS SUMMARY | 2020-03-01 04:14 | XMS REPORT ---
:1995 [facility] Address [address] [place] [address] Dr. Macdonald [address] [place] [id number] Care Team Providers Name Role Phone Unavailable Unavailable Unavailable Problems This patient has no known problems. Allergies, Adverse Reactions, Alerts This patient has no known allergies or adverse reactions. Medications This patient has no known medications. Procedures This patient has no known procedures. Results This patient has no known results.
[2020-03-01 04:36] VITALS: BMI 37.8
[2020-03-01] MEDS ORDERED: Ringers Lactate 1,000 ML IV PRN (04:36)
[2020-03-01] MEDS ORDERED: BUTORPHANOL 1 MG/ML INJ IV PRN (04:36)
[2020-03-01] MEDS ORDERED: PROMETHAZINE INJ 25 MG/ML AMP IM PRN (04:36)
[2020-03-01 04:55] LABS: Absolute Lymphocytes (CBC) 2.5 K/uL (0.7-4.9); Basophils % 0.4 % (0-1.3); Hematocrit 34.2 % (36.0-45.0); Lymphocytes % 22.5 % (15.3-44.8); MPV 8.3 fL (7.6-11.3); RBC Red Blood Cell Count 4.04 M/uL (3.86-4.86)
[2020-03-01 04:56] LABS: Urine Appearance CLOUDY; Urine Bilirubin NEGATIVE (NEG); Urine Blood NEGATIVE (NEG); Urine Color YELLOW; Urine Glucose NEGATIVE (NEG); Urine Protein NEGATIVE (NEG)
[2020-03-01] MEDS ORDERED: OXYTOCIN/LR 20 UNIT/1,000 ML BAG IV SCH ×2 (05:00→17:00)
[2020-03-01] MEDS ORDERED: Ringers Lactate 1,000 ML IV SCH (05:00)
[2020-03-01 05:16] LABS: Urine Microscopic Reflex ORDER UMIC
[2020-03-01 06:11] LABS: Urine Bacteria 20-50 /HPF (<20); Urine Culture Reflex Order REFLEXED; Urine Mucus 1+ /HPF (NONE SEEN); Urine RBC <5 /HPF (NONE SEEN)
[2020-03-01] MEDS ORDERED: METHYLERGONOVINE 0.2MG/ML AMP IM ONE (09:10)
[2020-03-01] MEDS ORDERED: CARBOPROST TROME 250 MCG/ML IM ONE (09:10)
[2020-03-01] MEDS ORDERED: FENTANYL CITR 100 MCG/2 ML IV ONE ×2 (09:11→09:15)
[2020-03-01] MEDS ORDERED: BUPIVACAINE 0.25% PF 30 ML VIAL IV ONE ×2 (09:11→09:13)
[2020-03-01] MEDS ORDERED: FENTANYL/BUPIVACAINE/NS/PF 200 MCG/100 ML BAG EP PRN ×2 (09:11→09:15)
[2020-03-01] MEDS ORDERED: LIDOCAINE 1% 20 ML MDV ONE (13:23)
[2020-03-01] MEDS ORDERED: DOCUSATE NA/SENNA CONC 1 TAB PO PRN (16:32)
[2020-03-01] MEDS ORDERED: BISACODYL 10 MG RECTAL SUPP PR PRN (16:32)
[2020-03-01] MEDS ORDERED: Oxycodone HCl/Acetaminophen 1 TAB TAB PO PRN (16:32)
[2020-03-01] MEDS ORDERED: DIPHENHYDRAMINE 25 MG TAB/CAP PO PRN (16:32)
[2020-03-01] MEDS ORDERED: ACETAMINOPHEN 500 MG TAB PO PRN (16:32)
[2020-03-01] MEDS ORDERED: IBUPROFEN 600 MG TAB PO PRN (16:53)
--- NOTE | 2020-03-01 17:22 | PN ---
Patient is on 18 units Pitocin, constance every 2-1/2 to 3 minutes. She is using Lamaze breathing techniques thus far. The patient is now 3.5 cm, 70% effaced. Cervix very soft, but the baby is occi put posterior. Pelvic rocks discussed. I think if the baby rotates, the labor will go quickly. Aida stapleton discussion. BARBIE/CARLOS Voice ID: [id number] Report ID: [id number]
[2020-03-01] MEDS: Oxycodone HCl/Acetaminophen 1 TAB TAB PO PRN (18:43)
[2020-03-02 01:31] LABS: RPR (Rapid Plasma Reagin) NON-REACT (NON-REACT)
--- NOTE | 2020-03-02 01:45 | OP ---
Surgeon: Narendra Gan MD History: A 24-year-old 4, para 1, at 39 weeks gestation, followed antepartum without complic ations. Rh positive. Nonimmune to Rubella. This has been discussed with the patient. We will give her the immunization during her . Tdap has been advised. 2 to 2.5 cm this morning on admi ssion rupture of membranes, clear fluid. The patient had 1 mg of Stadol IV. Otherwise, used Lamaze breathing techniques. Baby was noted to be occiput posterior during most of the labor, but when the patient achieved complete dilation, she pushed basically 1 set of pushes and the baby rotated and was delivered. 7-1/2 to 8 pounds female, Apgars 9 and 9 or 9 and 10. No episiotomy. No laceration. S chultze delivery of the placenta, which was inspected and noted to be intact and normal. Less than 2 50 mL blood loss. Tolerated all procedures well. Final Diagnosis: Term intrauterine 39 weeks. Vaginal delivery. Rubella immunization pend ing. NBC/MODL Voice ID: [id number] Report ID: [id number]
[2020-03-02] MEDS: Oxycodone HCl/Acetaminophen 1 TAB TAB PO PRN (03:11)
[2020-03-02] MEDS ORDERED: Oxycodone HCl/Acetaminophen 1 TAB TAB ONE (03:14)
[2020-03-02] MEDS ORDERED: MEASLES,MUMPS,RUBELLA VAC 0.5ML SQVAC ONE ×3 (07:08→17:32)
[2020-03-02] MEDS ORDERED: Tdap (Diph,Pertuss(Acell),Tet Vac) 0.5 ML SYR IMVAC ONE ×2 (07:08→17:31)
--- NOTE | 2020-03-02 09:20 | DS ---
A 24-year-old 4, para 1, 39 weeks gestation, delivered uneventfully of a 7 pounds plus, femal e Apgars 9 and 9. No episiotomy. No lacerations. Stadol 1 mg IV, it is only analgesics duri ng labor. Otherwise Lamaze breathing techniques. Schultze delivery of the placenta, which was inspe cted, noted to be intact and normal. Less than 250 cc blood loss. Rh positive, nonimmune to Rubella . Negative beta strep screen. Patient requested analgesics on dismissal. Given 15 tramadol. She k nows this goes through the breast milk, instructions on how to take them. Tdap and rubella immunizat ion also will be given prior to dismissal. Final Diagnoses: Term intrauterine 39 weeks, vaginal delivery, Tdap and rubella administra tion. BARBIE/CARLOS Voice ID: [id number] Report ID: [id number]
[2020-03-02 13:03] VITALS: BP 108/62; TEMP 97.6
[2020-03-04 04:22] LABS: HBsAG Nonreactive (Nonreactive)
--- NOTE | 2020-03-04 10:37 | PREOPHP ---
Date of Admission: 03/01/2020 24-year-old 4, para 1, 39 weeks gestation, followed antepartum without complications. Rh pos itive. Nonimmune to Rubella. This has been discussed with the patient. She will be immunized durin g her hospitalization. Beta-strep negative. 2 cm to possibly 2.5, 50% vertex, -1 station. FHTs nor mal, reactive. Rupture of membranes, clear fluid. Patient is constance regularly. Anticipate mor e rapid progress once she gets to 4 to 5 cm. Probably will request epidural. Full labor talk given. BARBIE/CARLOS Voice ID: [id number]
--- NOTE | 2020-03-04 10:38 | PN ---
Patient is now 7.5, possibly 8, 90%. The anterior cervix is slightly thicker than the posterior. Ce rvix indicating some mild edema. The baby is still straight occiput posterior. The patient has real ly not been doing the pelvic rocks. Again, this discussed as a way of trying to get the baby to rota te and the labor to proceed. She was on 18 milliunits, it was cut off for about 13 to 15 , and now we will cut it back on at half of what it was. When she gets fully dilated and starts pushi ng, possibly the baby will rotate at that time if not sooner. BARBIE/CARLOS Voice ID: [id number] Report ID: [id number]
== END 2020-03-02 18:00 | disposition home or self-care (01) | DRG 807 ==
LOC: 2ND-WC 04:11
PROVIDERS: ADMIT Specialist; ATTEND Specialist
PROC: 10E0XZZ Delivery of Products of Conception, External Approach (ICD-10-PCS; principal; 2020-03-01)
PROC: 10907ZC Drainage of Amniotic Fluid, Therapeutic from Products of Conception, Via Natural or Artificial Opening (ICD-10-PCS; 2020-03-01)
DX: O80 Encounter for full-term uncomplicated delivery (principal); Z37.0 Single live birth; Z3A.39 39 weeks gestation of pregnancy; Z23 Encounter for immunization
CPT/HCPCS: 36415; 81003; 81015; 85025; 86592; 86850; 86900; 86901; 87086; 87088; 87340; 90471; 90707; 90715; J0595; J2210; J2590; J7120

== ENCOUNTER 2021-05-25 14:34 | Emergency (ER) | payer OTHER ==
--- OUTSIDE RECORDS SUMMARY | 2021-05-25 14:37 | XMS REPORT | Continuity of Care Document ---
:1995 Author Organization [facility] t Address [address] [place] [address] Care Team Providers Name Role Phone Inge Najera Attending Clinician Unavailable iTera MCCALL Attending Clinician Problems This patient has no known problems. Allergies, Adverse Reactions, Alerts This patient has no known allergies or adverse reactions. Medications This patient has no known medications. Procedures This patient has no known procedures. Encounters Start End Encounter Admission Attending Care Care Encounter Source Date/Time Date/Time Type Type Clinicians Facility Department ID 2021-05-15 2021-05-15 Irrigation Installation Specialist Dania, [facility] [id number] 09:58:46 10:58:46 Visit Adc Inge Tang [id number] [place] [id number] [facility] [phone] [address] 2021-05-14 2021-05-14 Routine SHARRI Mott [id number] 15:34:35 15:57:16 Ellie Tang [id number] Visit [place] [id number] [facility] [phone] [address] Results This patient has no known results.
[2021-05-25] MEDS ORDERED: DIPHENHYDRAMINE 50 MG/ML VIAL ONE (15:13)
[2021-05-25] MEDS ORDERED: METHYLPREDNISOLONE 125 MG INJ ONE (15:13)
[2021-05-25] MEDS ORDERED: NA CHLORIDE 0.9% 1,000 ML ONE (15:14)
[2021-05-25] MEDS ORDERED: FAMOTIDINE 20 MG/2 ML VIAL IV ONE ×2 (15:14→15:24)
--- NOTE | 2021-05-25 15:51 | ER ---
Nurse's Notes [facility] Name: Stephane Gonzalez Age: 25 yrs Sex: Female : 1995 Arrival Date: 05/25/2021 Time: 14:36 Bed 12 Private MD: Diagnosis: Allergic contact dermatitis, unspecified cause Presentation: 05/25 14:44 Chief complaint: Patient states: Itchy rash all over, swelling noted to left eye and jl7 lips, pt states "My throat is starting to hurt.". Coronavirus screen: Client denies travel out of the [place] in the last 14 days. At this time, the client does not indicate any symptoms associated with coronavirus-19. Ebola Screen: No symptoms or risks identified at this time. 14:44 Method Of Arrival: Ambulatory [facility] 14:46 Initial Sepsis Screen: Does the patient meet any 2 criteria? No. Patient's initial jl7 sepsis screen is negative. Does the patient have a suspected source of infection? No. Patient's initial sepsis screen is negative. Risk Assessment: Do you want to hurt yourself or someone else? Patient reports no desire to harm self or others. Onset of symptoms was May 25, 2021. 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 - Social history:: Smoking status: Patient denies any tobacco usage or history of. Screenin:06 Abuse screen: Denies threats or abuse. Nutritional screening: No deficits noted. aa5 Tuberculosis screening: No symptoms or risk factors identified. Fall Risk None identified. Assessment: 14:55 General: Appears comfortable, Behavior is calm, cooperative. Pain: Denies pain. Neuro: aa5 Level of Consciousness is awake, alert, obeys commands, Oriented to person, place, time, situation. Cardiovascular: Heart tones S1 S2 present Rhythm is regular. Respiratory: Airway is patent Respiratory effort is even, unlabored, Respiratory pattern is regular, symmetrical, Breath sounds are clear bilaterally. GI: Abdomen is round. : No signs and/or symptoms were reported regarding the genitourinary system. EENT: No signs and/or symptoms were reported regarding the EENT system. Derm: Skin is pink, warm \\T\\ dry. Rash noted that is itchy, red, raised, on right arm, left arm, right leg and left leg. Musculoskeletal: Range of motion: intact in all extremities. 15:49 Reassessment: Patient is alert, oriented x 3, equal unlabored respirations, skin aa5 warm/dry/pink. Patient states feeling better. itching and rash have improved, RN EMERGENCY was notified. . 16:10 Reassessment: Patient is alert, oriented x 3, equal unlabored respirations, skin aa5 warm/dry/pink. Vital Signs: 14:44 BP 117 / 70; Pulse 86; Resp 15; Pulse Ox 100% ; Weight 90.72 kg; jl7 15:50 BP 115 / 68; Pulse 85; Resp 18 S; Pulse Ox 100% on R/A; aa5 ED Course: 14:36 Patient arrived in ED. ds1 14:47 Triage completed. jl7 14:47 Maru Aldana FNP-C is [facility]. kb 14:47 James Arias MD is Attending Physician. kb 14:55 Patient has correct armband on for positive identification. Bed in low position. Call aa5 light in reach. Side rails up X 1. Arm band placed on right wrist. Pulse ox on. NIBP on. 14:59 Inserted saline lock: 20 gauge in right wrist, using aseptic technique. aa5 15:05 Effie Vidal, RN is Primary Nurse. aa5 16:05 No provider procedures requiring assistance completed. IV discontinued, intact, aa5 bleeding controlled, No redness/swelling at site. Pressure dressing applied. Administered Medications: 15:00 Drug: NS 0.9% 1000 ml Route: IV; Rate: 1000 ml; Site: right wrist; aa5 15:49 Follow up: IV Status: Completed infusion; IV Intake: 1000ml aa5 15:00 Drug: Pepcid (famotidine) 20 mg Route: IVP; Site: right wrist; aa5 15:05 Follow up: Response: No adverse reaction aa5 15:00 Drug: Benadryl (diphenhydrAMINE) 25 mg Route: IVP; Site: right wrist; aa5 15:05 Follow up: Response: No adverse reaction aa5 15:00 Drug: SOLU-Medrol (methylPrednisoLONE) 125 mg Route: IVP; Site: right wrist; aa5 15:05 Follow up: Response: No adverse reaction aa5 16:04 Drug: predniSONE 60 mg Route: PO; aa5 16:04 Follow up: Response: No adverse reaction; Medication administered at discharge. aa5 Intake: 15:49 IV: 1000ml; Total: 1000ml. aa5 Outcome: 15:51 Discharge ordered by . reuben 16:10 Discharged to home ambulatory. aa5 16:10 Condition: improved 16:10 Discharge instructions given to patient, Instructed on discharge instructions, follow up and referral plans. medication usage, Demonstrated understanding of instructions, follow-up care, medications, Prescriptions given X 2. 16:12 Patient left the ED. eb Signatures: Maru Aldana, LEISA-C DIRECTOR MARKET RESEARCH-Claudia Davidson ds1 Effie Vidal, RN RN aa5 Adenike Issa RN RN jl7 Susan hSook Corrections: (The following items were deleted from the chart) 15:55 14:44 BP 117 / 10; Pulse 86bpm; Resp 15bpm; Pulse Ox 100%; 90.72 kg; jl7 [facility] 19:05 15:40 Arm band placed on right wrist. [place] [id number] 19:06 15:20 Arm band placed on right wrist. 5 aa 19:06 15:20 Patient has correct armband on for positive identification. Bed in low position. 5 Call light in reach. Side rails up X 1. aa5 19: 15:20 Pulse ox on. NIBP on. aa5 aa
--- NOTE | 2021-05-25 15:52 | EDPHYS ---
Physician Documentation [facility] Name: Stephane Gonzalez Age: 25 yrs Sex: Female : 1995 Arrival Date: 05/25/2021 Time: 14:36 Bed 12 Private MD: ED Physician James Arias HPI: 05/25 15:55 This 25 yrs old Female presents to ER via Ambulatory with complaints of kb Allergic Reaction - 25 wks Preg. 15:55 The patient presents with itching, localized swelling, rash. Onset: The kb symptoms/episode began/occurred yesterday. Associated signs and symptoms: Pertinent positives: rash, swelling. Possible causes: At home the patient or guardian has treated the symptoms with nothing. Severity of symptoms: At their worst the symptoms were moderate in the emergency department the symptoms are unchanged. The patient has not experienced similar symptoms in the past. The patient has not recently seen a physician, Pt reports she was doing yard work yesterday and broke out into a rash. Reports itching. . 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 - Social history:: Smoking status: Patient denies any tobacco usage or history of. ROS: 15:53 Constitutional: Negative for fever, chills, and weight loss. kb 15:53 Skin: Positive for rash, swelling, diffusely. 15:53 All other systems are negative. Exam: 15:54 Constitutional: This is a well developed, well nourished patient who is awake, alert, kb and in no acute distress. Head/Face: Normocephalic, atraumatic. ENT: Moist Mucous membranes Cardiovascular: Regular rate and rhythm with a normal S1 and S2. No gallops, murmurs, or rubs. No pulse deficits. Respiratory: Respirations even and unlabored. No increased work of breathing, no retractions or nasal flaring. MS/ Extremity: Pulses equal, no cyanosis. Neurovascular intact. Full, normal range of motion. Neuro: Awake and alert, GCS 15, oriented to person, place, time, and situation. Moves all extremities. Normal gait. Psych: Awake, alert, with orientation to person, place and time. Behavior, mood, and affect are within normal limits. 15:54 Skin: Appearance: normal except for affected area, swelling, noted on the upper lip and lower lip, that are mild, consistent with contact dermatitis, and is diffusely located. Vital Signs: 14:44 BP 117 / 70; Pulse 86; Resp 15; Pulse Ox 100% ; Weight 90.72 kg; jl7 15:50 BP 115 / 68; Pulse 85; Resp 18 S; Pulse Ox 100% on R/A; aa5 MDM: 14:47 Patient medically screened. kb 15:49 Data reviewed: vital signs, nurses notes. Data interpreted: Pulse oximetry: on room air kb is 100 %. Interpretation: normal. Counseling: I had a detailed discussion with the patient and/or guardian regarding: the historical points, exam findings, and any diagnostic results supporting the discharge/admit diagnosis, the need for outpatient follow up, a family practitioner, to return to the emergency department if symptoms worsen or persist or if there are any questions or concerns that arise at home. 05/25 14:48 Order name: IV Start; Complete Time: 15:05 kb Administered Medications: 15:00 Drug: NS 0.9% 1000 ml Route: IV; Rate: 1000 ml; Site: right wrist; aa5 15:49 Follow up: IV Status: Completed infusion; IV Intake: 1000ml aa5 15:00 Drug: Pepcid (famotidine) 20 mg Route: IVP; Site: right wrist; aa5 15:05 Follow up: Response: No adverse reaction aa5 15:00 Drug: Benadryl (diphenhydrAMINE) 25 mg Route: IVP; Site: right wrist; aa5 15:05 Follow up: Response: No adverse reaction aa5 15:00 Drug: SOLU-Medrol (methylPrednisoLONE) 125 mg Route: IVP; Site: right wrist; aa5 15:05 Follow up: Response: No adverse reaction aa5 16:04 Drug: predniSONE 60 mg Route: PO; aa5 16:04 Follow up: Response: No adverse reaction; Medication administered at discharge. aa5 Disposition: 05/26 07:36 Co-signature as Attending Physician, James Arias MD I agree with the assessment and kenia plan of care. Disposition Summary: 05/25/21 15:51 Discharge Ordered Location: Home kb Condition: Stable kb Diagnosis - Allergic contact dermatitis, unspecified cause kb Followup: kb - With: Private Physician - When: 2 - 3 days - Reason: Recheck today's complaints, Continuance of care, Re-evaluation by your physician Followup: kb - With: Emergency Department - When: As needed - Reason: Worsening of condition Discharge Instructions: - Discharge Summary Sheet kb - Rash, Adult, [id number] kb - Contact Dermatitis, [id number] kb Forms: - Medication Reconciliation Form kb - Thank You Letter kb - Antibiotic Education kb - Prescription Opioid Use kb Prescriptions: - Pepcid 20 mg Oral Tablet - take 1 tablet by ORAL route every 12 hours for 5 days; 10 tablet; Refills: 0, kb Product Selection Permitted - Prednisone 20 mg Oral Tablet - take 1 tablet by ORAL route once daily for 5 days; 5 tablet; Refills: 0, kb Product Selection Permitted Signatures: Maru Aldana, ANDREC PLAY LEADER-James Man MD MD cha Calderon, Audri, RN RN aa5 Adenike Issa RN RN jl7
[2021-05-25] MEDS ORDERED: predniSONE 20 MG TAB ONE (16:26)
[2021-05-25 16:27] VITALS: BP 117/70; O2SAT 100
== END 2021-05-25 16:12 | disposition home or self-care (01) ==
LOC: ER 14:34
DX: O26.892 Other specified pregnancy related conditions, second trimester (principal); L23.9 Allergic contact dermatitis, unspecified cause; Z3A.25 25 weeks gestation of pregnancy
CPT/HCPCS: 96361; 96375; 96374; 99284; J1200; J7512; J7030; J2930

== ENCOUNTER 2025-08-16 05:02 | Emergency (ER) | payer OTHER, SELFPAY ==
[2025-08-16] MEDS ORDERED: KETOROLAC 30 MG/ML INJ ONE (05:52)
[2025-08-16] MEDS ORDERED: MORPHINE 2 MG/ML SYR ONE (05:52)
[2025-08-16] MEDS ORDERED: ONDANSETRON 4 MG/2 ML VIAL ONE (05:52)
[2025-08-16] MEDS ORDERED: FAMOTIDINE 20 MG/2 ML VIAL IV ONE (05:53)
[2025-08-16] MEDS ORDERED: NA CHLORIDE 0.9% 1,000 ML ONE (05:53)
[2025-08-16 05:59] LABS: Absolute Lymphocytes (CBC) 2.5 K/uL (0.7-4.9); Hematocrit 35.0 % (36.0-45.0); Hemoglobin 11.5 g/dL (12.0-15.0); MCH 27.6 pg (27.0-35.0); MCHC 32.8 g/dL (32.0-36.0); MCV 84.1 fL (80-100); MPV 8.0 fL (7.6-11.3); Nucleated RBC Absolute Count 0.0 (0-0); Nucleated Red Blood Cells % 0.0 % (0-0); RBC Red Blood Cell Count 4.16 M/uL (3.86-4.86); White Blood Count 11.00 thou/uL (4.3-10.9)
[2025-08-16 06:41] LABS: ALT/SGPT 86.0 U/L (13-56); AST/SGOT 110.0 U/L (15-37); Albumin 3.1 g/dL (3.4-5.0); Albumin/Globulin Ratio 0.8 (1.1-1.8); Alkaline Phosphatase 85.0 U/L (45-117); Anion Gap 9.4 mEq/L (5.0-15.0); BUN Blood Urea Nitrogen 18.0 mg/dL (7-18); Globulin 3.8 g/dL (2.3-3.5); Glucose Level 88.0 mg/dL (74-106); Lipase 35.0 U/L (13-75); Potassium 3.4 mEq/L (3.5-5.1)
[2025-08-16 07:47] LABS: Urine Culture Reflex Order REFLEXED; Urine Microscopic Reflex YN ORDER UMIC
--- NOTE | 2025-08-16 07:50 | RAD REPORT ---
EXAMINATION: CT ABDOMEN AND PELVIS WITH CONTRAST CLINICAL INDICATION: ABD PAIN TECHNIQUE: CT abdomen and pelvis was performed, after the administration of IV contrast, as per [facility] protocol. Axial, sagittal and coronal reconstructions were obtained. One or more of the following dose reduction techniques were used: Automated exposure control, adjustment of the mA and k V according to patient size, and iterative reconstruction. Unless otherwise specified, incidental findings do not require dedicated imaging follow-up. COMPARISON: No prior exam. FINDINGS: LOWER CHEST: Mild pericardial effusion. Trace bilateral pleural effusions. LIVER: Normal in size and contour. Mild periportal edema. No focal lesion. Cholelithiasis. SPLEEN: Normal size. No focal lesion. PANCREAS: No mass, ductal dilation, or uriel-pancreatic fluid. ADRENALS: Normal; no mass. KIDNEYS: Normal size and contour. No hydronephrosis. GASTROINTESTINAL TRACT: No evidence of free air, significant intra-abdominal free fluid, bowel obstru ction or abscess. APPENDIX: Normal appendix. LYMPH NODES: No lymphadenopathy. MUSCULOSKELETAL: Mild multilevel spinal degenerative changes. ADDITIONAL FINDINGS: Small fat-containing umbilical hernia. IMPRESSION: Cholelithiasis. Mild edematous appearance to the liver with subtle periportal edema. Suggest correlation with LFTs.
--- NOTE | 2025-08-16 08:02 | EDPHYS ---
Physician Documentation [facility] Name: Stephane Gonzalez Age: 29 yrs Sex: Female : 1995 Arrival Date: 08/16/2025 Time: 05:02 Bed 15 Private MD: ED Physician Edel Lopez HPI: 08/16 05:08 This 29 yrs old Female presents to ER via Unassigned with complaints of sp4 Abdominal Pain, Nausea/Vomiting. 05:58 29-year-old female past medical history bilateral tubal ligation presents today with sp4 acute onset upper abdominal pain associated with nausea vomiting. Pain 10 out of 10 on a scale. . 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 - Infectious Disease History:: Denies. - Social history:: Smoking status: Patient denies any tobacco usage or history of. Patient uses alcohol, occasionally. Patient/guardian denies using street drugs, IV drugs. - Family history:: not pertinent. ROS: 05:58 Constitutional: Negative for fever, chills, and weight loss, positive upper abdominal sp4 pain, positive nausea vomiting. 05:58 All other systems are negative, Exam: 05:58 Constitutional: This is a well developed, well nourished patient who is awake, alert, sp4 and in no acute distress. Head/Face: Normocephalic, atraumatic. Eyes: Pupils equal round and reactive to light, extra-ocular motions intact. Lids and lashes normal. Conjunctiva and sclera are not injected. Cornea within normal limits. Periorbital areas with no swelling, redness, or edema. ENT: Nares patent. No nasal discharge, no septal abnormalities noted. Tympanic membranes are normal and external auditory canals are clear. Oropharynx with no redness, swelling, or masses, exudates, or evidence of obstruction, uvula midline. Mucous membranes moist. Neck: Trachea midline, no thyromegaly or masses palpated, and no cervical lymphadenopathy. Supple, full range of motion without nuchal rigidity, or vertebral point tenderness. Chest/axilla: Normal chest wall appearance and motion. Nontender with no deformity. No lesions are appreciated. Cardiovascular: Regular rate and rhythm with a normal S1 and S2. No gallops, murmurs, or rubs. No pulse deficits. Respiratory: Lungs have equal breath sounds bilaterally, clear to auscultation and percussion. No rales, rhonchi or wheezes noted. No increased work of breathing, no retractions or nasal flaring. Abdomen/GI: Soft, with normal bowel sounds. No distension or tympany. No guarding or rebound. No evidence of tenderness throughout. Back: No spinal tenderness. No costovertebral tenderness. Skin: Warm, dry with normal turgor. Normal color with no rashes, no lesions, and no evidence of cellulitis. MS/ Extremity: Pulses equal, no cyanosis. Neurovascular intact. Full, normal range of motion. Neuro: Awake and alert, GCS 15, oriented to person, place, time, and situation. Cranial nerves II-XII grossly intact. Motor strength 5/5 in all extremities. Sensory grossly intact. Psych: Awake, alert, with orientation to person, place and time. Behavior, mood, and affect are within normal limits Vital Signs: 05:30 BP 90 / 71; Pulse 71; Resp 17; Temp 97.7; Pulse Ox 100% ; Weight 95.25 kg; Height 5 ft. jj7 5 in. ; Pain 10/10; 06:53 BP 99 / 72; Pulse 67; Pulse Ox 100% on R/A; kd4 08:14 BP 102 / 64; Pulse 60; Resp 16; Pulse Ox 100% ; ll1 05:30 Body Mass Index 34.95 (95.25 kg, 165.1 cm) [facility] 05:30 Pain Scale: Adult j7 Maddison Coma Score: 05:58 Eye Response: spontaneous(4). Verbal Response: oriented(5). Motor Response: obeys sp4 commands(6). Total: 15. 06:02 Eye Response: spontaneous(4). Verbal Response: oriented(5). Motor Response: obeys kd4 commands(6). Total: 15. MDM: 07:04 Differential diagnosis: Nonspecific abd pain, gastritis, cholecystitis, pancreatitis, sp4 viral gastroenteritis, gastroenteritis. Data reviewed: vital signs, nurses notes, lab test result(s), CBC, electrolytes, hepatic panel, radiologic studies, CT scan. Consideration of Admission/Observation Escalation of care including admission/observation considered. Transition of care: After a detail discussion of the patient's case, care is transferred to Edel Lopez MD. 07:05 Medical Screening Exam initiated sp3 07:34 ED course: Patient signed out to me by nighttime physician. Patient is a 29-year-old sp3 female with no past medical history who presents with epigastric abdominal pain. Patient is feeling significantly better after medications that were given and all lab work so far is normal. We are awaiting UA and CT scan of the abdomen pelvis. If workup negative we will safely discharge patient home. Vital signs are currently normal patient is resting comfortably.. 08:00 ED course: All results reviewed. Patient has mild UTI however I do believe that is the sp3 cause of her visit. Patient also has cholelithiasis however bilirubin and lipase are both normal. LFTs are elevated and patient has perihepatic fluid. I have advised patient to follow-up with both general surgery as well as GI. No acute findings to warrant admission. Patient will be discharged on antibiotics and pain medication as well. Patient understands need for follow-up and have explained all of these items to her. All questions were answered and patient is now ready for safe discharge.. 08/16 05:08 Order name: CBC with Diff; Complete Time: 07:17 sp4 08/16 05:08 Order name: CMP; Complete Time: 07:17 sp4 08/16 05:08 Order name: Lipase; Complete Time: 07:17 sp4 08/16 05:08 Order name: Test, Urine; Complete Time: 07:55 sp4 08/16 05:38 Order name: UA Rfx Porfirio Cult if indicated; Complete Time: 07:55 sp4 08/16 07:52 Order name: Urine Culture EDMS 08/16 05:38 Order name: CT Abd/Pelvis - IV Contrast Only; Complete Time: 07:55 sp4 08/16 05:08 Order name: IV Saline Lock; Complete Time: 07:15 sp4 08/16 05:08 Order name: Labs collected and sent; Complete Time: 07:15 sp4 08/16 06:02 Order name: Misc. Order: RECOLLECT GREEN TOP; Complete Time: 07:14 rv1 Administered Medications: 06:06 Drug: Famotidine IVP 20 mg IVP once; dilute with 10 mL 0.9% NaCl; give over 2 minutes kd4 Route: IVP; Site: right antecubital; 06:36 Follow up: Response: No adverse reaction kd4 06:06 Drug: Ondansetron IVP 8 mg IVP once; over 2 minutes Route: IVP; Site: right antecubital;kd4 06:36 Follow up: Response: No adverse reaction kd4 06:06 Drug: Ketorolac IVP 30 mg IVP once Route: IVP; Site: right antecubital; kd4 06:35 Follow up: Response: No adverse reaction kd4 06:06 Drug: Droperidol IVP 1.25 mg IVP once Route: IVP; Site: right antecubital; kd4 06:35 Follow up: Response: No adverse reaction kd4 06:07 Drug: NS 0.9% IV 1000 ml IV at 1 bolus Per protocol; to be given as a bolus over 60 kd4 minutes Route: IV; Rate: 1 bolus; Site: right antecubital; 08:15 Follow up: Response: No adverse reaction; IV Status: Completed infusion; IV Intake: ll1 1000ml 06:07 Drug: morphine IVP or IV 4 mg IVP once over 4 mins Route: IVP; Infused Over: 4 mins; kd4 Site: right antecubital; 06:36 Follow up: Response: No adverse reaction kd4 Disposition Summary: 08/16/25 08:01 Discharge Ordered Notes: Location: Home sp3 Condition: Stable sp3 Diagnosis - Cholelithiasis, elevated LFTs, UTI sp3 Followup: sp3 - With: Private Physician - When: Upon discharge from the Emergency Department - Reason: Continuance of care Discharge Instructions: - Discharge Summary Sheet sp3 - Urinary Tract Infection, Adult sp3 - Cholelithiasis sp3 - Liver Function Tests sp3 Forms: - Work release form ll1 - Medication Reconciliation Form sp3 - Antibiotic Education sp3 - Prescription Opioid Use sp3 - Patient Portal Instructions sp3 - Leadership Thank You Letter sp3 Prescriptions: - Tramadol 50 mg Oral Tablet - take 1 tablet ORAL route every 8 hours as needed; 12 tablet; Refills: 0, sp3 Product Selection Permitted - Bactrim DS 800-160 mg Oral tablet - take 1 tablet ORAL route every 12 hours for 5 days; 10 tablet; Refills: 0, sp3 Product Selection Permitted Signatures: Dispatcher [employer] Edel Johnson MD MD sp3 Angela Marion RN RN jj7 Chasity Weaver rv1 Conner Rivera MD MD sp4 Yumiko Palma RN RN kd4 Pravin Hair RN ll1 Corrections: (The following items were deleted from the chart) 05:44 05:42 PSHx: None; jj7 jj7
--- NOTE | 2025-08-16 08:02 | ER ---
Nurse's Notes [facility] Name: Stephane Gonzalez Age: 29 yrs Sex: Female : 1995 Arrival Date: 08/16/2025 Time: 05:02 Bed 15 Private MD: Diagnosis: Cholelithiasis, elevated LFTs, UTI Presentation: 08/16 05:30 Chief complaint: Patient states: EPIGASTRIC PAIN STARTED AT 2200 YESTERDAY AT THE SAME j7 TIME SHE GOT HER PERIOD. VOMITED X1. Coronavirus screen: At this time, the client does not indicate any symptoms associated with coronavirus-19. Ebola Screen: No symptoms or risks identified at this time. Initial Sepsis Screen: Does the patient meet any 2 criteria? No. Patient's initial sepsis screen is negative. Does the patient have a suspected source of infection? No. Patient's initial sepsis screen is negative. Risk Assessment: Do you want to hurt yourself or someone else? Patient reports no desire to harm self or others. Note TOOK TYLENOL \T\[id number]. Onset of symptoms was August 15, 2025. 05:30 Method Of Arrival: Ambulatory [facility] 05:30 Acuity: ELI 3 jj7 Triage Assessment: 05:42 General: Appears in no apparent distress. comfortable, Behavior is calm, cooperative, jj7 appropriate for age. Pain: Complains of pain in epigastric area. GI: Reports upper abdominal pain, epigastric pain, nausea, vomiting. DIRECTOR BIOINFORMATICS: 06:05 LMP 08/15/2025, unknown kd4 Historical: - Allergies: 05:42 NKDA; jj7 - PMHx: 05:42 None; jj7 - PSHx: 05:42 TUBIAL LIGATION; D\T\C; jj7 - Immunization history:: Adult Immunizations up to date. - Infectious Disease History:: Denies. - Social history:: Smoking status: Patient denies any tobacco usage or history of. Patient uses alcohol, occasionally. Patient/guardian denies using street drugs, IV drugs. - Family history:: not pertinent. Screenin:02 [facility] ED Fall Risk Assessment (Adult) History of falling in the last 3 months, kd4 including since admission No falls in past 3 months (0 pts) Confusion or Disorientation No (0 pts) Intoxicated or Sedated No (0 pts) Impaired Gait No (0 pts) Mobility Assist Device Used No (0 pt) Altered Elimination No (0 pt) Score/Fall Risk Level 0 - 2 = Low Risk Oriented to surroundings, Maintained a safe environment. Abuse screen: Denies threats or abuse. Nutritional screening: No deficits noted. Tuberculosis screening: No symptoms or risk factors identified. Assessment: 06:02 General: Appears in no apparent distress. comfortable, Behavior is calm, cooperative. kd4 Pain: Complains of pain in abdomen and epigastric area Pain currently is 10 out of 10 on a pain scale. Neuro: Denies weakness dizziness. Cardiovascular: No deficits noted. Denies chest pain, shortness of breath. Respiratory: Denies shortness of breath. GI: Reports upper abdominal pain, nausea, vomiting. 08:14 GI: Bowel sounds present X 4 quads. Abd is soft and non tender X 4 quads. ll1 Vital Signs: 05:30 BP 90 / 71; Pulse 71; Resp 17; Temp 97.7; Pulse Ox 100% ; Weight 95.25 kg; Height 5 ft. jj7 5 in. ; Pain 10/10; 06:53 BP 99 / 72; Pulse 67; Pulse Ox 100% on R/A; kd4 08:14 BP 102 / 64; Pulse 60; Resp 16; Pulse Ox 100% ; ll1 05:30 Body Mass Index 34.95 (95.25 kg, 165.1 cm) jj7 05:30 Pain Scale: Adult jj7 Maddison Coma Score: 05:58 Eye Response: spontaneous(4). Verbal Response: oriented(5). Motor Response: obeys sp4 commands(6). Total: 15. 06:02 Eye Response: spontaneous(4). Verbal Response: oriented(5). Motor Response: obeys kd4 commands(6). Total: 15. ED Course: 05:04 Patient arrived in ED. gm2 05:07 Conner Rivera MD is Attending Physician. sp4 05:41 Yumiko Palma, JUAN is Primary Nurse. kd4 05:42 Triage completed. jj7 05:42 Arm band placed on right wrist. Patient placed in an exam room, on a stretcher. jj7 06:02 Patient has correct armband on for positive identification. Side rails up X2. Client kd4 placed on continuous cardiac and pulse oximetry monitoring. NIBP monitoring applied. Pulse ox on. NIBP on. 06:02 Initial lab(s) drawn, by me, sent to lab. Inserted saline lock: 20 gauge in right kd4 antecubital area, using aseptic technique. 07:00 Provided Education on: ER procedures and process. ll1 07:04 Attending Physician role handed off by Conner Rivera MD sp3 07:04 Edel Lopez MD is Attending Physician. sp3 07:11 CT Abd/Pelvis - IV Contrast Only In Process Unspecified. EDMS 08:14 No provider procedures requiring assistance completed. IV discontinued, intact, ll1 bleeding controlled, No redness/swelling at site. Pressure dressing applied. Administered Medications: 06:06 Drug: Famotidine IVP 20 mg IVP once; dilute with 10 mL 0.9% NaCl; give over 2 minutes kd4 Route: IVP; Site: right antecubital; 06:36 Follow up: Response: No adverse reaction kd4 06:06 Drug: Ondansetron IVP 8 mg IVP once; over 2 minutes Route: IVP; Site: right antecubital;kd4 06:36 Follow up: Response: No adverse reaction kd4 06:06 Drug: Ketorolac IVP 30 mg IVP once Route: IVP; Site: right antecubital; kd4 06:35 Follow up: Response: No adverse reaction kd4 06:06 Drug: Droperidol IVP 1.25 mg IVP once Route: IVP; Site: right antecubital; kd4 06:35 Follow up: Response: No adverse reaction kd4 06:07 Drug: NS 0.9% IV 1000 ml IV at 1 bolus Per protocol; to be given as a bolus over 60 kd4 minutes Route: IV; Rate: 1 bolus; Site: right antecubital; 08:15 Follow up: Response: No adverse reaction; IV Status: Completed infusion; IV Intake: ll1 1000ml 06:07 Drug: morphine IVP or IV 4 mg IVP once over 4 mins Route: IVP; Infused Over: 4 mins; kd4 Site: right antecubital; 06:36 Follow up: Response: No adverse reaction kd4 Medication: 06:02 VIS not applicable for this client. kd4 Intake: 08:15 IV: 1000ml; Total: 1000ml. ll1 Outcome: 08:01 Discharge ordered by . sp3 08:14 Discharged to home ambulatory, ll1 08:14 Condition: stable 08:14 Discharge instructions given to patient, Instructed on discharge instructions, follow up and referral plans. no driving heavy equipment, medication usage, Demonstrated understanding of instructions, follow-up care, medications, Prescriptions given X 2, 08:16 Patient left the ED. 1 Signatures: Dispatcher [employer] EDPravin Paul RN RN ll1 Edel Lopez MD MD sp3 Angela Marion RN RN jj7 Conner Rivera MD MD sp4 [place] 2 Yumiko Palma RN RN kd4 Corrections: (The following items were deleted from the chart) 05:44 05:42 PSHx: None; jj7 jj7
[2025-08-16 08:19] VITALS: TEMP 97.7; O2SAT 100
[2025-08-16 08:22] VITALS: BP 102/64
== END 2025-08-16 08:16 | disposition home or self-care (01) ==
LOC: ER 05:02
DX: K80.20 Calculus of gallbladder without cholecystitis without obstruction (principal); N39.0 Urinary tract infection, site not specified; R79.89 Other specified abnormal findings of blood chemistry
CPT/HCPCS: 36415; 74177; 80053; 81001; 81025; 83690; 85025; 87086; 87088; 96361; 96374; 96375; 99284; J1790; J1885; J2270; J2405; J7030; Q9967